=== PATIENT | male | born 1950 | race Caucasian/White ===

== ENCOUNTER 2022-02-12 12:03 | Observation (INO) | payer MEDICARE, SELFPAY ==
[2022-02-12] VITALS (12 sets, daily range): BP systolic 105–167; BP diastolic 71–88; PULSE 72–90; RESP 12–20; TEMP 35.8–36.9; O2SAT 94–100; BMI 26.5
--- NOTE | 2022-02-12 | PATH_ITS ---
[facility] Accession Number: [id number] . 01 Material submitted: . hernia - HERNIA SAC . 02 Diagnosis: Hernia Sac, Repair: Inflamed fibroconnective and fibroadipose tissue with features of repair, consistent with hernia sac and contents. Negative for neoplasia. V 02/15/2022 1059 Local . 02 Electronically signed: . Denise Suarez MD, Pathologist NPI- [id number] . 01 Gross description: . The specimen is received in formalin, labeled hernia sac, and consists of a 5.0 x 4.5 x 4.1 cm intact hernia sac. The hernia sac has a flood-fan smooth serosal surface with a single laceration measuring 4.2 cm in length. Sectioning demonstrates an aggregate of hemorrhagic to dusky adipose tissue. No other lesions or masses are identified grossly. The resection margin is inked blue. The specimen representatively submitted in cassettes A1-A3. ([id number]) /V 02/13/2022 1442 Local . 02 Pathologist provided ICD-10: K42.0 . 02 CPT . 003103 Specimen Comment: A courtesy copy of this report has been sent to [phone] Performed at: 01 [facility] [address] [facility], [place], [place] [id number] MD Chino Bowen MD Phone: [phone] Performed at: 02 [facility] [address] [place], [place] [id number] MD Scarlett Marcos MD Phone: [phone]
[2022-02-12 13:01] LABS: Add Manual Diff / Slide Review NO; Basophils Absolute Auto 100 /uL (0-100); Basophils Percent Auto 0.6 % (0-2); Eosinophils Absolute Auto 100 /uL (0-450); Eosinophils Percent Auto 1.1 % (2-4); Hematocrit 43.2 % (41-53); Hemoglobin 14.6 g/dL (13.5-17.5); Lymphocytes Absolute Auto 1200 /uL (1100-4500); Lymphocytes Percent Auto 14.2 % (25-40); Mean Corpuscular HGB Conc 33.9 % (30-36); Mean Corpuscular Hemoglobin 29.3 PG (26-34); Mean Corpuscular Volume 86.5 fL (80-100); Monocytes Absolute Auto 700 /uL (0-900); Monocytes Percent Auto 8.6 % (3-14); Neutrophils Absolute Auto 6400 /uL (1500-7000); Neutrophils Percent Auto 75.5 % (50-75); Platelet Count 281 X10^3/uL (150-400); Red Blood Cell Count 4.99 X10^6/uL (4.5-5.9); Red Cell Distribution Width 13.3 % (11.6-14.8); White Blood Cell Count 8.5 X10^3/uL (4.5-11.0)
[2022-02-12 13:12] LABS: Alanine Aminotransferase 30 IU/L (<50); Albumin 4.6 g/dL (3.5-5.0); Albumin Globulin Ratio 1.3 (1.0-2.8); Alkaline Phosphatase 76 U/L (38-126); Aspartate Aminotransferase 27 IU/L (17-59); BUN Creatinine Ratio 28.6 (6-22); Bilirubin Total 0.8 mg/dL (0.2-1.3); Blood Urea Nitrogen 20 mg/dL (9-20); Calcium 9.4 mg/dL (8.4-10.2); Carbon Dioxide 28 mmol/L (22-32); Chloride 102 mmol/L (98-107); Estimated Glomerular Filt Rate > 60 mL/min (>60); Globulin 3.6 g/dL (1.7-4.1); Glucose 106 mg/dL (80-110); HEMOLYSIS < 15 (0-50); Lipase 112 U/L (23-300); Potassium 4.3 mmol/L (3.4-5.1); Sodium 140 mmol/L (137-145); Total Protein 8.2 g/dL (6.3-8.2)
--- NOTE | 2022-02-12 14:10 | DI.CT.S_ITS ---
PROCEDURE: CT ABDOMEN PELVIS W CON INDICATIONS: periumbilical pain ? incarcerated hernia TECHNIQUE: After the administration of intravenous contrast, axial sections acquired from the lung bases to the pubic symphysis. Coronal and sagittal reformats were performed. For radiation dose reduction, the following was used: automated exposure control, adjustment of mA and/or kV according to patient size. COMPARISON: None. FINDINGS: Image quality: Excellent. Lung bases: Bibasilar dependent atelectasis is seen posteriorly. Heart: No significant findings. ABDOMEN: Liver: Liver is normal in size. Several tiny hypodensities are noted scattered in liver parenchyma and measures up to 1.1 x 1.4 cm in size in posterior right hepatic dome and measures 1.6 Hounsfield unit in density likely represent hepatic cysts. Gallbladder: Within normal limits. Biliary ducts: Unremarkable. Pancreas: Pancreas show normal enhancement. Several small calcifications are seen scattered in body and tail of pancreas likely represent sequelae from prior pancreatitis. No peripancreatic inflammatory changes. Spleen: Unremarkable. Adrenal Glands: Unremarkable. Kidneys and Ureters: Bilateral peripelvic renal cysts are seen. No renal stones or hydronephrosis. No hydroureter. Stomach and Bowel: There is no bowel obstruction or abnormal bowel wall thickening. No significant mesenteric fat stranding. No evidence of acute appendicitis or diverticulitis. Peritoneum: No abnormal intraperitoneal fluid. No free air. Ventral Wall: There is an umbilical hernia containing fat only. Stranding of the fat within herniation sac is seen. Abdominal Nodes: No retroperitoneal or mesenteric adenopathy by size criteria. Vessels: Aorta and inferior vena cava are normal in size. Yyau-ct-rdtbcdej atherosclerotic calcifications are noted in abdominal aorta. PELVIS: Pelvic Organs: Enlarged prostate gland with mass effect on floor of urinary bladder is seen. Bladder: Diffuse bladder wall thickening is noted concerning for cystitis versus chronic outlet obstruction. No discrete bladder wall mass. Pelvic Nodes: No enlarged lymph nodes. Miscellaneous: Small left inguinal hernia is seen containing fat only. Bones: No suspicious bony lesion. 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 Degenerative disc disease throughout lumbar spine is noted more prominent at L4-5 and L5-S1 levels. No acute vertebral body compression fracture. IMPRESSION: 1. Moderate size umbilical hernia containing fat only with stranding of fat within herniation sac concerning for fat incarceration. 2. No bowel obstruction or abnormal bowel wall thickening. No free fluid or free air. 3. Enlarged prostate gland with mass effect on floor of urinary bladder. Diffuse bladder wall thickening. No discrete bladder wall mass. 4. Possible hepatic cysts as above. Suggestion of prior pancreatitis. 5. Bilateral peripelvic renal cysts. No stones or hydronephrosis. 6. 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 Dictated by: Damion Patel M.D. on 02/12/2022 at 14:40 Approved by: Damion Patel M.D. on 02/12/2022 at 14:45
[2022-02-12 14:16] LABS: Lactate (Lactic Acid) 0.9 mmol/L (0.7-2.1)
[2022-02-12 14:29] LABS: COVID19 -Nasal RAPID Negative (Negative)
--- NOTE | 2022-02-12 15:07 | ED.ABDPAIN ---
HPI - Abdominal Pain General Chief Complaint: Abdominal Pain Stated Complaint: Strangled Hernia x3 days Time Seen by Provider: 02/12/22 13:55 Source: patient Mode of arrival: Ambulatory History of Present Illness HPI narrative: Patient is a 71-year-old male with out any medical problems but does take an aspirin 81 mg daily and vitamins. Presents today with increasing abdominal pain and umbilical redness. Says he has always had umbilical hernia in a for the last 3 days it has gotten more tender and more red. No fever chills no nausea or vomiting. He is still having bowel movements. He took a laxative Saturday when he realized he did not have a bowel movement on Saturday. He has not had anything to eat or drink since last evening. He was seen by primary care today who [place], he drove himself POV to the ED. Related Data Previous Rx's Medication Instructions Recorded acetaminophen 325 mg capsule 650 mg PO QID PRN #60 cap 02/12/22 (Tylenol) ibuprofen 200 mg tablet 400 mg PO Q6H #60 tab 02/12/22 oxycodone 5 mg tablet 5 mg PO Q6H PRN #20 tab 02/12/22 Allergies Allergy/AdvReac Type Severity Reaction Status Date / Time No Known Drug Allergies Allergy Verified 02/12/22 12:25 Review of Systems Review of Systems Narrative: GENERAL: Denies chills, fatigue, malaise, fever, sweats, travel HEENT: Denies sinus pain, ear pain, sore throat, difficulty swallowing, neck pain RESPIRATORY: Denies dyspnea, cough, wheezing, hemoptysis, sputum. CARDIOVASCULAR: Denies chest pain, palpitations, orthopnea, edema GASTROINTESTINAL: See HPI : Denies dysuria, frequency, incontinence, hematuria, urinary retention, flank pain. MUSCULOSKELETAL: Denies weakness, joint pain, or bony pain SKIN: No rash, no erythema, no pruritus NEUROLOGIC: Denies weakness, dizziness, headache, numbness, change in speech, confusion PSYCHIATRIC: No concerning psychosocial issues. 12 point review of systems is negative except for those stated above and HPI Patient History Social History Smoking Status: Former smoker alcohol intake: current Smoking Status: Former smoker alcohol intake frequency: 0-2 drinks per day Exam Initial Vital Signs Initial Vital Signs: Vital Signs Temperature 98.4 F 02/12/22 12:21 Pulse Rate 86 02/12/22 12:21 Respiratory Rate 18 02/12/22 12:21 Blood Pressure 166/88 H 02/12/22 12:21 Pulse Oximetry 96 02/12/22 12:21 GENERAL: Alert well-appearing 71-year-old male HEENT: Head atraumatic,EOMI, pupils reactive, face symmetric, moist mucous membranes CARDIOVASCULAR: Regular rate and rhythm without murmurs, rubs or gallops. RESPIRATORY: Breath sounds equal bilaterally, no wheezes rales or rhonchi. ABDOMEN: Periumbilical hernia erythematous tender to touch with surrounding erythema as well. Unable to reduce : No CVA tenderness EXTREMITIES: Normal range of motion, no clubbing or edema. Neurovascularly intact NEUROLOGICAL: Alert and oriented x4.Normal gait and speech. SKIN: Warm, dry, no laceration, no petechiae, no rashes or lesions. Course Orders Ordered: ED Orders 02/12/22 12:43 EKG-12 Lead Stat 02/12/22 12:52 Complete Blood Count AUTO DIFF Stat Comprehensive Metabolic Panel Stat Lactate (Lactic Acid) Stat Lipase Stat 02/12/22 13:45 COVID19 -Nasal RAPID/Pre-Proc Stat 02/12/22 14:10 CT abdomen pelvis w con Stat Acetaminophen (Acetaminophen 325 Mg Tablet) 650 mg PO PACUNOW PRN PRN Reason: Pain, Mild (1-3) Lactated Ringer's (Lactated Ringers) 1,000 mls @ 42 mls/hr IV NOW ONE Stop: 02/13/22 15:45 Last Infusion: 02/12/22 17:40 Dose: 42 mls/hr Documented by: Admin: 02/12/22 15:57 Dose: 42 mls/hr Documented by: CTR.[email or web address] Ondansetron HCl (Ondansetron 4 Mg/2 Ml Inj) 4 mg IV NOW PRN PRN Reason: Nausea And Vomiting Oxycodone HCl (Oxycodone Ir 5 Mg Tablet) 5 mg PO PACUNOW PRN PRN Reason: Mild or moderate pain Discontinued Medications Bupivacaine HCl (Bupivacaine 0.25% (Pf) Vial) 30 ml INJ NOW ONE Stop: 02/12/22 16:41 Last Admin: 02/12/22 16:40 Dose: 30 ml Documented by: DON Fentanyl (Fentanyl 100 Mcg/2 Ml Inj) 0 mcg IV Q5M PRN PRN Reason: Pain, Moderate (4-6) Hydromorphone HCl (Hydromorphone 2 Mg Inj) 0 mg IV Q5MIN PRN PRN Reason: Pain, Mild (1-3) Cefazolin Sodium 1 gm/ Sodium (Chloride) 100 mls @ 200 mls/hr IV NOW ONE Stop: 02/12/22 16:14 Last Infusion: 02/12/22 16:30 Dose: 0 mls/hr Documented by: Admin: 02/12/22 16:25 Dose: 200 mls/hr Documented by: PEÑA Vital Signs Vital signs: Vital Signs - 8 hr 02/12/22 12:21 Temperature 98.4 F Pulse Rate 86 Respiratory Rate 18 Blood Pressure 166/88 H Pulse Oximetry 96 MDM - Abdominal Pain Lab Data Result diagrams: 02/12/22 12:52 02/12/22 12:52 Labs: Lab Results 02/12/22 02/12/22 02/12/22 Range/Units 12:52 12:52 12:52 WBC 8.5 (4.5-11.0) X10^3/uL RBC 4.99 (4.5-5.9) X10^6/uL Hgb 14.6 (13.5-17.5) g/dL Hct 43.2 (41-53) % MCV 86.5 (80-100) fL MCH 29.3 (26-34) PG MCHC 33.9 (30-36) % RDW 13.3 (11.6-14.8) % Plt Count 281 (150-400) X10^3/uL Neut % (Auto) 75.5 H (50-75) % Lymph % (Auto) 14.2 L (25-40) % [place] % (Auto) 8.6 (3-14) % Eos % (Auto) 1.1 L (2-4) % Baso % (Auto) 0.6 (0-2) % Neut # (Auto) 6400 (6582-7386) /uL Lymph # (Auto) 1200 (1737-1388) /uL [place] # (Auto) 700 (0-900) /uL Eos # (Auto) 100 (0-450) /uL Baso # (Auto) 100 (0-100) /uL Sodium 140 (137-145) mmol/L Potassium 4.3 (3.4-5.1) mmol/L Chloride 102 (98-107) mmol/L Carbon Dioxide 28 (22-32) mmol/L BUN 20 (9-20) mg/dL Creatinine 0.70 (0.66-1.25) mg/dL Estimated GFR > 60 (>60) mL/min BUN/Creatinine Ratio 28.6 H (6-22) Glucose 106 (80-110) mg/dL Lactate 0.9 (0.7-2.1) mmol/L Calcium 9.4 (8.4-10.2) mg/dL Total Bilirubin 0.8 (0.2-1.3) mg/dL AST 27 (17-59) IU/L ALT 30 (<50) IU/L Alkaline Phosphatase 76 (38-126) U/L Total Protein 8.2 (6.3-8.2) g/dL Albumin 4.6 (3.5-5.0) g/dL Globulin 3.6 (1.7-4.1) g/dL Albumin/Globulin Ratio 1.3 (1.0-2.8) Lipase 112 (23-300) U/L SARS-CoV-2 (PCR) (Negative) 02/12/22 Range/Units 13:45 WBC (4.5-11.0) X10^3/uL RBC (4.5-5.9) X10^6/uL Hgb (13.5-17.5) g/dL Hct (41-53) % MCV (80-100) fL MCH (26-34) PG MCHC (30-36) % RDW (11.6-14.8) % Plt Count (150-400) X10^3/uL Neut % (Auto) (50-75) % Lymph % (Auto) (25-40) % [place] % (Auto) (3-14) % Eos % (Auto) (2-4) % Baso % (Auto) (0-2) % Neut # (Auto) (0497-6219) /uL Lymph # (Auto) (8923-6213) /uL [place] # (Auto) (0-900) /uL Eos # (Auto) (0-450) /uL Baso # (Auto) (0-100) /uL Sodium (137-145) mmol/L Potassium (3.4-5.1) mmol/L Chloride (98-107) mmol/L Carbon Dioxide (22-32) mmol/L BUN (9-20) mg/dL Creatinine (0.66-1.25) mg/dL Estimated GFR (>60) mL/min BUN/Creatinine Ratio (6-22) Glucose (80-110) mg/dL Lactate (0.7-2.1) mmol/L Calcium (8.4-10.2) mg/dL Total Bilirubin (0.2-1.3) mg/dL AST (17-59) IU/L ALT (<50) IU/L Alkaline Phosphatase (38-126) U/L Total Protein (6.3-8.2) g/dL Albumin (3.5-5.0) g/dL Globulin (1.7-4.1) g/dL Albumin/Globulin Ratio (1.0-2.8) Lipase (23-300) U/L SARS-CoV-2 (PCR) Negative (Negative) Imaging Data CT scan - abdomen/pelvis: Radiologist's Impression: Emil Cotton MR#: [id number] : 1950 Acct:[id number] Age/Sex: 71 / M Date of Service: 02/12/22 Loc: ED Accession Number: [id number] ?? Procedure: CT abdomen pelvis w con Ordering Provider: Brooke Joshi D.O. PROCEDURE:? CT ABDOMEN PELVIS W CON ? INDICATIONS:? periumbilical pain ? incarcerated hernia ? TECHNIQUE:? After the administration of intravenous contrast, axial sections acquired from the lung bases to the pubic symphysis.? Coronal and sagittal reformats were performed.? For radiation dose reduction, the following was used:? automated exposure control, adjustment of mA and/or kV according to patient size.? ? COMPARISON:? None. ? FINDINGS:? Image quality:? Excellent.? ? Lung bases:? Bibasilar dependent atelectasis is seen posteriorly.? Heart:? No significant findings. ? ABDOMEN: Liver:? Liver is normal in size.? Several tiny hypodensities are noted scattered in liver parenchyma and measures up to 1.1 x 1.4 cm in size in posterior right hepatic dome and measures 1.6 Hounsfield unit in density likely represent hepatic cysts. Gallbladder:? Within normal limits. Biliary ducts:? Unremarkable.? ? Pancreas:? Pancreas show normal enhancement.? Several small calcifications are seen scattered in body and tail of pancreas likely represent sequelae from prior pancreatitis. ?No peripancreatic inflammatory changes. Spleen:? Unremarkable.? ? Adrenal Glands:? Unremarkable.? ? Kidneys and Ureters:? Bilateral peripelvic renal cysts are seen.? No renal stones or hydronephrosis.? No hydroureter. ? Stomach and Bowel:? There is no bowel obstruction or abnormal bowel wall thickening.? No significant mesenteric fat stranding.? No evidence of acute appendicitis or diverticulitis. Peritoneum:? No abnormal intraperitoneal fluid.? No free air.? ? Ventral Wall: ? There is an umbilical hernia containing fat only.? Stranding of the fat within herniation sac is seen. Abdominal Nodes:? No retroperitoneal or mesenteric adenopathy by size criteria.? Vessels:? Aorta and inferior vena cava are normal in size.? Utcz-xl-sykrzbsi atherosclerotic calcifications are noted in abdominal aorta. ? PELVIS: Pelvic Organs:? Enlarged prostate gland with mass effect on floor of urinary bladder is seen. Bladder:? Diffuse bladder wall thickening is noted concerning for cystitis versus chronic outlet obstruction.? No discrete bladder wall mass. Pelvic Nodes: No enlarged lymph nodes.? Miscellaneous:? Small left inguinal hernia is seen containing fat only. ? Bones:? No suspicious bony lesion.? 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 Degenerative disc disease throughout lumbar spine is noted more prominent at L4-5 and L5-S1 levels.? No acute vertebral body compression fracture. ? ? IMPRESSION:? 1. Moderate size umbilical hernia containing fat only with stranding of fat within herniation sac concerning for fat incarceration. 2. No bowel obstruction or abnormal bowel wall thickening.? No free fluid or free air. 3. Enlarged prostate gland with mass effect on floor of urinary bladder.? Diffuse bladder wall thickening.? No discrete bladder wall mass. 4. Possible hepatic cysts as above.? Suggestion of prior pancreatitis. 5. Bilateral peripelvic renal cysts.? No stones or hydronephrosis. 6. 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 Dictated by: Damion Patel M.D. on 02/12/2022 at 14:40 ? ? Approved by: Damion Patel M.D. on 02/12/2022 at 14:45 ? MDM Narrative Medical decision making narrative: The patient has signs and symptoms of incarcerated hernia confirmed by CT. No leukocytosis or elevated lactate. Surgery consulted. Patient will to OR at 4:00 p.m. Discharge Plan Departure Patient Disposition: Admitted As Inpatient Clinical Impression: Incarcerated hiatal hernia Admit Date/Time: 02/12/22 15:25 Admit Provider: Zhao Gregorio
[2022-02-12] MEDS: LACTATED RINGERS 1,000 ML 42 ML IV (15:57)
--- NOTE | 2022-02-12 16:02 | PM.HP.1 ---
History of Present Illness History of Present Illness Date Patient Seen: 02/12/22 Time Patient Seen: 16:02 Chief complaint: Strangled Hernia x3 days Narrative: 71 y.o man with a strangulated umbilical hernia Several days of pain and increasing redness at the umbilicus. No prior umbilical hernia hernia or repair. CT demonstrates stranding within the umbilicus contains omentum no bowel. NPO since yesterday. No prior abdominal surgeries. Patient History Family & Social History Social History: Prior Living Arrangements House Safety & Behavioral: Feels Safe in Current Yes Environment Been Physically Hurt or No Threatened By a Person Tobacco & Substance use: Smoking Status Former smoker alcohol intake current alcohol intake frequency 0-2 drinks per day Substance Use Type does not use Meds Home Medications and Allergies Allergies Allergy/AdvReac Type Severity Reaction Status Date / Time No Known Drug Allergies Allergy Verified 02/12/22 12:25 Exam Vital Signs (past 8 hours): - 02/12/22 12:21 02/12/22 15:51 Temperature 98.4 F 97.8 F Pulse Rate 86 87 Respiratory Rate 18 15 Blood Pressure 166/88 H 139/81 Pulse Oximetry 96 96 Oxygen Delivery Method Room Air Narrative Exam Narrative: Gen-Adult man alert and oriented Chest-Non labored resp Abdomen-Non reducible umbilical hernia Marked erythema 8 cm circumference. Tender to palpation. Objective Labs Result Diagrams: 02/12/22 12:52 02/12/22 12:52 Labs: Laboratory Results - last 24 hr 02/12/22 02/12/22 02/12/22 12:52 12:52 12:52 WBC 8.5 RBC 4.99 Hgb 14.6 Hct 43.2 MCV 86.5 MCH 29.3 MCHC 33.9 RDW 13.3 Plt Count 281 Neut % (Auto) 75.5 H Lymph % (Auto) 14.2 L [place] % (Auto) 8.6 Eos % (Auto) 1.1 L Baso % (Auto) 0.6 Neut # (Auto) 6400 Lymph # (Auto) 1200 [place] # (Auto) 700 Eos # (Auto) 100 Baso # (Auto) 100 Sodium 140 Potassium 4.3 Chloride 102 Carbon Dioxide 28 BUN 20 Creatinine 0.70 Estimated GFR > 60 BUN/Creatinine Ratio 28.6 H Glucose 106 Lactate 0.9 Calcium 9.4 Total Bilirubin 0.8 AST 27 ALT 30 Alkaline Phosphatase 76 Total Protein 8.2 Albumin 4.6 Globulin 3.6 Albumin/Globulin Ratio 1.3 Lipase 112 SARS-CoV-2 (PCR) 02/12/22 13:45 WBC RBC Hgb Hct MCV MCH MCHC RDW Plt Count Neut % (Auto) Lymph % (Auto) [place] % (Auto) Eos % (Auto) Baso % (Auto) Neut # (Auto) Lymph # (Auto) [place] # (Auto) Eos # (Auto) Baso # (Auto) Sodium Potassium Chloride Carbon Dioxide BUN Creatinine Estimated GFR BUN/Creatinine Ratio Glucose Lactate Calcium Total Bilirubin AST ALT Alkaline Phosphatase Total Protein Albumin Globulin Albumin/Globulin Ratio Lipase SARS-CoV-2 (PCR) Negative Assessment & Plan Assessment and plan (1) Incarcerated umbilical hernia: Status: Acute Assessment & Plan narrative: 71 y.o man with an incarcerated umbilical hernia and associated cellulitis. Appears to contain omentum no bowel. Recommended that we proceed with open umbilical hernia repair. No plan for mesh as field likely contaminated from necrotic omentum. Operative details discussed including risks of bleeding, infection, damage to surrounding structures, hernia reoccurence. Questions answered will proceed. Time Spent With Patient Critical Care time: I spent a total of [] minutes of critical care time on this patient's care today; this time is exclusive of procedural time.
[2022-02-12] MEDS: CEFAZOLIN VIAL 1 GM in SODIUM CHLORIDE 0.9% 100 ML 200 ML IV (16:25)
[2022-02-12] MEDS: BUPIVACAINE 0.25% (PF) VIAL 30 ML INJ (16:40)
--- NOTE | 2022-02-12 16:47 | SUR.OPER ---
Supine on padded OR bed, head on pillow, arms secured on padded arm boards at <90 degrees abduction, legs uncrossed, safety belt at thigh, tape over blanket over lower legs. Gel pad placed under bilateral heels.
--- NOTE | 2022-02-12 17:03 | P.OP_ITS ---
Operative Date/Time/Diagnoses Date of procedure: 02/12/22 Time of procedure: 17:03 Pre-op diagnosis: incarcerated umbilical hernia Post-op diagnosis: same Procedure & Clinicians Procedure: Open umbilical hernia repair Same procedure as scheduled: Yes Indications: 71-year-old man with a incarcerated umbilical hernia. CT demonstrates fat str anding and no bowel is involved. Surgeon: Zhao Gregorio Click Yes if Unassisted: Yes Anesthesia Type: General Operative Notes Findings: necrotic omentum within hernia sac. 1 1/2 cm fascial defect. No bowel involved Specimen(s): other (Hernia sac) Estimated Blood Loss (mL): 10 Procedure in detail: Patient is brought to the operating room placed supine on the table. Bilateral lower extremity compression devices were applied. General anesthesia was induced he was intubated with an endotracheal tube. He received Ancef prior to skin incision. He was prepped and draped in sterile fashion. Time-out performed. I made a supra umbilical incision in the midline. The hernia sac was observed and was carefully dissected out from the surrounding subcutaneous tissue down the level of fascia. Sac was opened the sac appeared necrotic with omentum. The omentum was ligated and then the nonviable portion was resected. There was no evidence of infection within the wound. The fascial defect was closed with interrupted Ethibond suture in bktvai-ua-zobpi fashion. Wound was irrigated hemostasis was checked. tissue was reapproximated with 3-0 Vicryl. Skin was closed with Monocryl followed by Dermabond and assist sterile dressing. Patient tolerated procedure well was extubated and transferred to recovery in stable condition. Complications: none Post-operative Condition: stable Disposition: same day surgery
--- NOTE | 2022-02-12 17:55 | SUR.PHASEI ---
- 1702-patient recieved with oral airway,required chin lift x 1 minute. patient arouseng. Oral airway out at 1705.airway patient . oxygen down to 3 l/nasally. abdomen with some redness to skin surrounding outside of tegaderm barrier. Abdomen was firm/disdended preop=Per [employer]-was this way. ice applied. 1710-plan discharge to home. However, pt drove self into hospital,lives on [place] and needs [facility],plus daughter not coming into Area til 3am from [place]. orders to be placed to stay the night. slight itchy nose and removes oxygen prn. left off , sats monitored. wnl on room air. Reoriented to surroundings. denies pain or nausea. 1725-vss. tolerates ice chips po. 1735-Report to Stephani SMITH by phone. vss. meets criteria for transfer. iv saline locked. orders for transfer acknowledged. 1740-to floor by abe-2 bags of belongings. wide awake and alert. refused offers for po fluids at this time. discomfort mild with coughing -encouraged to splint. Refused need for pain medication prior to transfer. 1745-In Rm 212. Assisted oob from [facility] to hospital bed. no difficulty. skin/wound check with floor RN, some improvement in degree of redness around tegaderm.
--- NOTE | 2022-02-12 18:08 | SUR.PHASEI ---
02/12/22-1800 Prescription found on printer and sent to floor. not signed by MD. Dr. Gregorio called and aware that is now in chart in patients room /area.
[2022-02-13 00:18] VITALS: BP 112/74; PULSE 90; RESP 20; TEMP 36.1; O2SAT 96
[2022-02-13 04:00] VITALS: BP 121/76; PULSE 86; RESP 20; TEMP 36.3; O2SAT 95
--- NOTE | 2022-02-13 05:06 | PC.NURSE ---
Pt was discharge home with his daughter. Pt educated on post-op care as well as his daughter. pt will follow up with his surgeon.
== END 2022-02-13 04:35 | disposition home or self-care (01) ==
LOC: ED 15:16 → AC 15:32
PROVIDERS: Admitting Provider Surgery; Emergency Provider Emergency Medicine; PCP Student in an Organized Health Care Education/Training Program; Referring Provider Emergency Medicine; Visit Provider Surgery
PROC: (CPT 49587; principal; 2022-02-12 15:30)
DX: K42.0 Umbilical hernia with obstruction, without gangrene (principal); Z20.822 Contact with and (suspected) exposure to COVID-19
CPT/HCPCS: 49587; 36415; 74177; 80053; 83605; 83690; 85025; 87635; 93005; 96361; 96374; 99219; 99284; C9803; G0378; J0690; J1100; J2405; J2704; J3010